=== PATIENT | female | born 1950 | race Caucasian/White ===

== ENCOUNTER 2021-02-18 13:34 | Emergency (ER) | payer MEDICARE ==
[~2021-02-18] VITALS: Ht 167.6 cm; Wt 79.4 kg
[2021-02-18 14:38] LABS: HEMOGLOBIN 12.7 gm/dl (12.3-15.3); RED BLOOD COUNT 4.24 M/UL (4.00-5.10); WHITE BLOOD COUNT 4.9 K/UL (4.5-11.0)
[2021-02-18 15:42] LABS: BUN/CREATININE RATIO 16 (0-10)
== END 2021-02-18 18:30 | disposition home or self-care (01) ==
LOC: ER1 13:34
PROVIDERS: Physician Assistant
DX: Z23 Encounter for immunization (principal); U07.1 COVID-19; E11.9 Type 2 diabetes mellitus without complications; E07.9 Disorder of thyroid, unspecified; I10 Essential (primary) hypertension
CPT/HCPCS: 71045; 80053; 85025; 99283; M0243